=== PATIENT | male | born 1970 | race Caucasian/White ===

== ENCOUNTER → 2020-05-03 10:39 | Outpatient (CLI) | payer OTHER, SELFPAY ==
--- NOTE | ~2020-05-03 | MR_ITS ---
EXAMINATION: MR lumbar spine wo con EXAM DATE: 05/03/2020 11:34 INDICATION: Low back pain, right hip pain. TECHNIQUE: Multi-sequential, multiplanar MR images of the lumbar spine were obtained without contrast . Sagittal T1, T2, T2 fat saturation images. Axial T2 weighted images. Comparison is made to prior examination from 01/21/2019. FINDINGS: The vertebral bodies are aligned in the AP dimension. There is mild to moderate disc diseas e at T11-12, and L3-L5. Vertebral body heights are maintained. The conus medullaris terminates at the L1/2 level and has normal signal intensity and morphology. There are no suspicious marrow signal ab normalities. Paraspinal soft tissue is unremarkable. Level by level evaluation: T12-L1: Disc does not extend beyond the endplate margin. Facet arthropathy: None. Neural foraminal stenosis: No stenosis. Central canal stenosis: No stenosis. L1-L2: Disc does not extend beyond the endplate margin. Facet arthropathy: Minimal. Neural foraminal stenosis: No stenosis. Central canal stenosis: No stenosis. L2-L3: Disc does not extend beyond the endplate margin. Facet arthropathy: Mild. Neural foraminal stenosis: No stenosis. Central canal stenosis: No stenosis. L3-L4: There is a mild diffuse disc bulge. Facet arthropathy: Mild. Neural foraminal stenosis: Mild bilateral. Central canal stenosis: No stenosis. L4-L5: There is a mild diffuse disc bulge. Facet arthropathy: Mild to moderate. Neural foraminal stenosis: Mild to moderate bilateral. Central canal stenosis: No stenosis. L5-S1: There is a mild diffuse disc bulge. Facet arthropathy: Mild. Neural foraminal stenosis: Mild bilateral. Central canal stenosis: No stenosis. Compared to 2019, mild interval progression in the mid lumbar disc disease. IMPRESSION: 1. Mild to moderate lumbar spondylosis. Reviewed, dictated and finalized at location A.
== END ==
PROVIDERS: PCP Family Medicine Adolescent Medicine; Visit Provider Nurse Practitioner Family
DX: M47.26 Other spondylosis with radiculopathy, lumbar region (principal)
CPT/HCPCS: 72148

== ENCOUNTER → 2022-06-05 07:01 | Outpatient (CLI) | payer OTHER, SELFPAY ==
--- NOTE | ~2022-06-05 | MR_ITS ---
MRI of the lumbar spine Clinical History: Back pain Technique: Axial T2-weighted images, and sagittal T1-weighted, T2-weighted, and T2 fat-sat images wer e acquired. COMPARISON: 05/03/2020 Findings: There is no fracture or subluxation of the lumbar spine. Osseous alignment is unchanged. No suspicious bone marrow signal abnormality seen. At L1-L2, there is no disc bulge or herniation. There is minimal facet joint hypertrophy. No spinal c anal stenosis or neural foraminal narrowing. At L2-L3, there is minimal facet joint hypertrophy. No disc bulge or herniation. No spinal canal sten osis or neural foraminal narrowing. L3-L4, there is mild degenerative disc narrowing without significant bulge or herniation. There is mi nimal facet hypertrophy. No spinal canal stenosis or neural foraminal narrowing. At L4-L5, there is mild degenerative disc narrowing with probable minimal disc bulge. There is advanc ed facet arthropathy. No spinal canal stenosis. There is mild to moderate bilateral neural foraminal narrowing. At L5-S1, there is no disc bulge or herniation. There is moderate facet arthropathy. No spinal canal stenosis or neural foraminal narrowing. Paravertebral soft tissues are unremarkable. Impression: Mild degenerative spondylosis overall, as detailed above, worst at L4-L5. Reviewed, dictated and finalized at [facility]. Impression: Mild degenerative spondylosis overall, as detailed above, worst at L4-L5.
== END ==
PROVIDERS: PCP Family Medicine Adolescent Medicine
DX: M47.896 Other spondylosis, lumbar region (principal)
CPT/HCPCS: 72148

== ENCOUNTER 2023-03-02 13:03 | Outpatient (CLI) | payer BC, SELFPAY ==
--- NOTE | 2023-03-02 14:30 | NEURO_ITS ---
Impression: # Non-diabetic complains of numbness of right hand. # Right ulnar neuropathy around the elbow. # No Carpal Tunnel Syndrome. # Needle/EMG exam mildly neurogenic in right 1st DI and ADM. Nerve Conduction Studies Anti Sensory Summary Table Stim Site NR Peak (ms) P-T Amp (?V) Site1 Site2 Delta-P (ms) Dist (cm) Chuy (m/s) Left Median Anti Sensory (2-3nd Digit) Wrist 3.4 16.6 Wrist 2-3nd Digit 3.4 14.0 41 Wrist 3.4 66.3 Wrist 2-3nd Digit 3.4 14.0 41 Right Median Anti Sensory (2-3nd Digit) Wrist 3.7 43.4 Wrist 2-3nd Digit 3.7 14.0 38 Wrist 3.4 40.6 Wrist 2-3nd Digit 3.7 14.0 38 Left Radial Anti Sensory (Base 1st Digit) Wrist 2.3 20.1 Wrist Base 1st Digit 2.3 0.0 Right Radial Anti Sensory (Base 1st Digit) Wrist 3.1 65.4 Wrist Base 1st Digit 3.1 0.0 Left Ulnar Anti Sensory (5th Digit) Wrist 3.3 49.6 Wrist 5th Digit 3.3 14.0 42 Right Ulnar Anti Sensory (5th Digit) Wrist 3.3 37.5 Wrist 5th Digit 3.3 14.0 42 Motor Summary Table Stim Site NR Onset (ms) O-P Amp (mV) Site1 Site2 Delta-0 (ms) Dist (cm) Chuy (m/s) Left Median Motor (Abd Poll Brev) Wrist 3.8 10.6 Elbow Wrist 1.2 33.0 275 Elbow 5.0 10.4 Right Median Motor (Abd Poll Brev) Wrist 3.5 7.8 Elbow Wrist 5.8 30.0 52 Elbow 9.3 6.1 Left Ulnar Motor (Abd Dig Minimi) Wrist 3.2 8.3 A Elbow Wrist 5.9 32.0 54 A Elbow 9.1 6.9 Right Ulnar Motor (Abd Dig Minimi) Wrist 4.5 9.1 A Elbow Wrist 7.1 31.0 44 A Elbow 11.6 7.4 B Elbow Wrist 5.3 22.0 42 B Elbow 9.8 7.1 F Wave Studies NR F-Lat (ms) L-R F-Lat (ms) Left Median (Mrkrs) (Abd Poll Brev) 30.72 0.09 Right Median (Mrkrs) (Abd Poll Brev) 30.82 0.09 Left Ulnar (Mrkrs) (Abd Dig Min) 31.64 0.00 Right Ulnar (Mrkrs) (Abd Dig Min) 31.64 0.00 EMG Side Muscle Nerve Root Ins Act Fibs Amp Dur Recrt Comment Right 1stDorInt Ulnar C8-T1 Nml Nml Nml >12ms Reduced Right Ext Indicis Radial (Post Int) C7-8 Nml Nml Nml Nml Nml Right Ext Digitorum Radial (Post Int) C7-8 Nml Nml Nml Nml Nml Right BrachioRad Radial C5-6 Nml Nml Nml Nml Nml Right PronatorTeres Median C6-7 Nml Nml Nml Nml Nml Right Abd Poll Brev Median C8-T1 Nml Nml Nml Nml Nml Left 1stDorInt Ulnar C8-T1 Nml Nml Nml Nml Nml Left Ext Indicis Radial (Post Int) C7-8 Nml Nml Nml Nml Nml Left Ext Digitorum Radial (Post Int) C7-8 Nml Nml Nml Nml Nml Left BrachioRad Radial C5-6 Nml Nml Nml Nml Nml Left PronatorTeres Median C6-7 Nml Nml Nml Nml Nml Left Abd Poll Brev Median C8-T1 Nml Nml Nml Nml Nml Right ABD Dig Min Ulnar C8-T1 Nml Nml Nml >12ms Reduced Left ABD Dig Min Ulnar C8-T1 Nml Nml Nml Nml Nml MTDD
== END 2023-03-02 13:04 | disposition home or self-care (01) ==
LOC: ANHNEURO 13:04
PROVIDERS: PCP Family Medicine Adolescent Medicine; Visit Provider Nurse Practitioner Family
DX: G56.21 Lesion of ulnar nerve, right upper limb (principal)
CPT/HCPCS: 95886; 95911

== ENCOUNTER 2024-04-22 07:29 | Outpatient (CLI) | payer BC, SELFPAY ==
--- NOTE | ~2024-04-22 | MR_ITS ---
MRI of the cervical spine Clinical History: Right cervical radiculopathy Technique: Axial T2-weighted and gradient images, and sagittal T1-weighted, T2-weighted, and STIR britt ges were acquired. Findings: There is no fracture of cervical spine. There is 3 mm retrolisthesis of C5 over C6. No susp icious bone marrow signal abnormality seen. At C2-C3, there is no disc bulge or herniation. No spinal canal stenosis, cord compression, or neural foraminal narrowing. At C3-C4, there is no disc bulge or herniation. No spinal canal stenosis, cord compression, or neural foraminal narrowing. At C4-C5, there is no disc bulge or herniation. No spinal canal stenosis, cord compression, or neural foraminal narrowing. There is minimal facet hypertrophy. C5-C6, there is moderate degenerative distended. There is disc osteophyte complex with mild canal janki nosis and no matthew cord compression. There is bilateral neural foraminal narrowing. At C6-C7, there is moderate degenerative distended. There is disc osteophyte complex without canal st enosis or cord compression. There is severe bilateral neural foraminal narrowing. Impression: Moderate degenerative spondylosis especially at C5-C6 and C6-C7, as detailed above. 3 mm retrolisthesis of C5 over C6. Reviewed, dictated and finalized at [facility]. Impression: Moderate degenerative spondylosis especially at C5-C6 and C6-C7, as detailed ab ove. 3 mm retrolisthesis of C5 over C6.
== END 2024-04-22 07:30 | disposition home or self-care (01) ==
PROVIDERS: PCP Family Medicine Adolescent Medicine; Visit Provider Family Medicine Adolescent Medicine
DX: M47.812 Spondylosis without myelopathy or radiculopathy, cervical region (principal); M43.12 Spondylolisthesis, cervical region; R29.898 Other symptoms and signs involving the musculoskeletal system
CPT/HCPCS: 72141

== ENCOUNTER 2024-08-15 08:01 | Outpatient (CLI) | payer BC, SELFPAY ==
--- NOTE | ~2024-08-15 | XR_ITS ---
CHEST RADIOGRAPH, PA AND LATERAL CLINICAL HISTORY: G56.21 - Lesion of ulnar nerve, right upper limb . COMPARISON: None available TECHNIQUE: PA and lateral views of the chest. FINDINGS The cardiomediastinal silhouette is unremarkable. Fixation hardware within the right clavicle. Prior fracture deformity within the mid to lower posterior right ribs, likely the eighth and ninth ri ght ribs. No fracture deformity is identified within the left chest. Elevation of the left hemidiaphragm is identified with adjacent compressive atelectasis. The remainder of the lungs are clear. IMPRESSION: No focal infiltrate or effusion. Reviewed, dictated and finalized at location A.
--- OUTSIDE RECORDS SUMMARY | 2024-08-15 08:07 | XMS_ITS | Clinical Summary ---
Author Organization [facility] [address] [place] [address] [address] [place] [address] Care Team Providers Care Director Of Operations For Therapy Name Role Phone Natanael Ny MD Primary Care Provider +1- [phone] Allergies No known active allergies Medications DULoxetine (CYMBALTA) 60 mg Capsule, Delayed Release(E.C.) Take 60 mg by mouth daily. Active lisinopriL (PRINIVIL) 20 mg tablet Take 20 mg by mouth daily. Active pregabalin (LYRICA) 150 mg Capsule Take 150 mg by mouth. Active pantoprazole (PROTONIX) 40 mg Tablet, Delayed Release (E.C.) Take 40 mg by mouth daily. 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 Gender Identity Not on file Sexual Orientation Not on file Last Filed Vital Signs Vital Sign Reading Time Taken Comments Blood Pressure - - Pulse - - Temperature - - Respiratory Rate - - Oxygen Saturation - - Inhaled Oxygen Concentration - - Weight 65.8 kg (145 lb) 06/04/2020 10:23 AM CDT Height 175.3 cm (5' 9) 06/04/2020 10:23 AM CDT Body Mass Index 21.41 06/04/2020 10:23 AM CDT Plan of Treatment Health Maintenance Due Date Last Done Comments DTAP/TDAP/TD VACCINES (1 - Tdap) 1988 HEPATITIS B VACCINES (1 of 3 - 19+ 3-dose series) 06/1988 COLORECTAL SCREENING 2014 Colorectal Cancer Screening 2014 FIT-DNA Q 3 years 2014 FIT/FOBT Q 1 year 2014 Flex Sig/CT Colonography Q 5 years 2014 ZOSTER VACCINE (1 of 2) 10/14/2019 INFLUENZA VACCINE (#1) 2024 Care Teams Director Of Operations For Therapy Relationship Specialty Start Date End Date Natanael Ny MD PCP - General Family Practice 04/04/20
--- OUTSIDE RECORDS SUMMARY | 2024-08-15 08:07 | XMS_ITS | Clinical Summary ---
Author Organization [facility] Address [address] [place] [address] Care Team Providers Care Sole Sewer Hand Name Role Phone Unavailable Primary Care Provider Unavailabl e Source Comments [facility] [employer],non-owned Affiliates and Associated Physician Practices is amultiple site organization consisting of ambulatory clinics and hospital sitesin [place], [place], [place] and [place]. This disclosure is being madepursuant to the Care Everywhere program and may not contain all information available regarding this patient. Last updated 17.[facility] [employer] Allergies No known active allergies Medications * This document contains information received from the source organization and may not represent a complete record from that organization. * Be aware that medications may not be up to date on this document. Alwaysverify current medications with the patient. naproxen sodium (ANAPROX DS) 550 MG tabletIndicatio ns:Pain Take 1 tablet by mouth 2 times daily Reasons: Pain 60 tablet 0 Active hydrOXYzine hcl (ATARAX) 50 MG tabletIndicatio ns:Anxiety Take 1 tablet by mouth every 6 hours as needed Reasons: Feeling Anxious 30 tablet 0 Active sertraline (ZOLOFT) 50 MG tabletIndicatio ns:Major Depressive Disorder Take 1 tablet by mouth once daily Reasons: Major Depressive Disorder 30 tablet 0 Active naltrexone (REVIA) 50 MG tabletIndicatio ns:Alcoholism Take 1 tablet by mouth once daily Reasons: Excessive Use of Alcohol 30 tablet 0 Active cyanocobalamin 1000 MCGIndications: Vitamin B12 Deficiency Take 1 tablet by mouth once daily Reasons: Inadequate Vitamin B12 30 tablet 0 Active pantoprazole EC (PROTONIX) 40 MG tabletIndicatio ns:Heartburn Take 1 tablet by mouth once daily Reasons: Heartburn 30 tablet 0 Active Vitamin D3, cholecalciferol , (CHOLECALCIFERO L) 25 MCG (1000 UNITS) tabletIndicatio ns:Vitamin D Deficiency Take 2 tablets by mouth once daily Reasons: Vitamin D Deficiency 60 tablet 0 Active nicotine (NICODERM CQ) 21 MG/24HR patchIndication s:Nicotine Dependence Apply 1 patch to skin once daily Remove old patch before applying new patch. Reasons: Nicotine Addiction 30 patch 0 Active gabapentin (NEURONTIN) 300 MG capsuleIndicati ons:Neuropathic Pain Take 1 capsule by mouth 2 times daily Reasons: Neuropathic Pain 60 capsule 0 Active lisinopril (PRINIVIL; ZESTRIL) 20 MG tabletIndicatio ns:Hypertension Take 1 tablet by mouth once daily Reasons: High Blood Pressure Disorder 30 tablet 0 Active traZODone (DESYREL) 50 MG tabletIndicatio ns:Alcoholism,I nsomnia Take 1 tablet by mouth at bedtime Reasons: Excessive Use of Alcohol, Trouble Sleeping 30 tablet 0 Active Active Problems Problem Noted Date Diagnosed Date Major depressive disorder, single episode, moder ate 02/24/2019 B12 deficiency 02/24/2019 Vitamin D deficiency 02/24/2019 Alcohol use disorder, severe, dependence 020 Social History Tobacco Use Types Packs/Day Years Used Date Smoking Tobacco: Heavy Smoker Smokeless Tobacco: Never Tobacco Cessation:Ready to Q uit: No; Counseling Given: Yes Alcohol Use Standard Drinks/Week Comments Yes 6 (1 standard drink = 0.6 oz pur e alcohol) 7 pints or more AUDIT-C Answer Date Recorded Frequency of Alcohol Consumption 4 or more times a week 02/23/2019 Average Number of Drinks 7 to 9 020 Frequency of Binge Drinking Daily or almost angelique y 02/23/2019 Sex and Gender Information Value Date Recorded Sex Assigned at Not on file Legal Sex Male 1:15 PM JAVA SWING DEVELOPER Gender Identity Not on file Sexual Orientation Not on file Last Filed Vital Signs Vital Sign Reading Time Taken Comments Blood Pressure 145/75 03/13/2019 2:10 PM JAVA SWING DEVELOPER Pulse 70 03/13/2019 2:10 PM JAVA SWING DEVELOPER Temperature 36.7 C (98.1 F) 03/13/2019 2:10 PM JAVA SWING DEVELOPER Respiratory Rate 16 03/13/2019 2:10 PM JAVA SWING DEVELOPER Oxygen Saturation 100% 03/13/2019 2:10 PM JAVA SWING DEVELOPER Inhaled Oxygen Concentration - - Weight 69.4 kg (153 lb) 03/02/2019 7:38 PM JAVA SWING DEVELOPER Height 175.3 cm (5' 9) 03/02/2019 7:38 PM JAVA SWING DEVELOPER Body Mass Index 22.59 03/02/2019 7:38 PM JAVA SWING DEVELOPER Plan of Treatment Health Maintenance Due Date Last Done Comments COLOGUARD (AGES 45-75) - COL ON CA SCREENING 1969 COLON MONITORING 1969 COLONOSCOPY - COLON CA SCREENING 1969 CT COLONOGRAPHY - COLON CA SCREENING 1969 Colorectal Cancer Screening 1969 FIT - COLON CA SCREENING 1969 FLEX SIG - COLON CA SCREENING 1969 HIV SCREENING 1984 HEPATITIS C SCREENING 10/09/1987 DTAP/TDAP/TD VACCINES (1 - Tdap) 1988 HEPATITIS B VACCINE (1 of 3 - 19+ 3-dose series) 1988 PNEUMOCOCCAL VACCINE 50+ (1 of 2 - PCV) 1988 ZOSTER VACCINE (1 of 2) 10/14/2019 COVID-19 VACCINE (1 - 2023-2 5 season) 2023 DEPRESSION SCREENING 02/09/2024 LIPID TESTING 02/25/2024 02/24/2019 INFLUENZA VACCINE (#1) 2024 HIB VACCINE Aged Out No longer eligi ble based on patient's age to complete this topic HPV VACCINE Aged Out No longer eligi ble based on patient's age to complete this topic MENINGOCOCCAL (Group B) VACC INE SHARED DECISION-MAKING Aged Out No longer eligibl e based on patient's age to complete this topic MENINGOCOCCAL GROUPS A/C/Y/W VACCINE Aged Out No longer eligible b ased on patient's age to complete this topic Procedures Procedure Name Priority Date/Time Associated Diagnosis Comments LIPID PROFILE AM Draw 02/24/2019 7:06 AM JAVA SWING DEVELOPER from Last 3 Months or Most Recently Relevant to Health Maintenance Results * LIPID PROFILE (02/24/2019 7:06 AM JAVA SWING DEVELOPER) Cholesterol 190 <200 mg/dL 02/24/2019 7:35 AM [facility] Triglycerides 47 <150 mg/dL 02/24/2019 7:35 AM [facility] HDL Cholesterol 98 >40 mg/dL 0 7:35 AM JAVA SWING DEVELOPER [facility] LDL Calculated 83 <130 mg/dL 02/24/2019 7:35 AM [facility] VLDL Calculated 9 <=30 mg/dL 0 7:35 AM [facility] Chol HDL Ratio 1.9 <4.5 02/24/2019 7:35 AM [facility] LDL/HDL Ratio 0.8 <5.0 02/24/2019 7:35 AM [facility] Blood BLOOD SPECIMEN / Unknown Lab Venipuncture / Unknown 02/24/2019 7:06 AM JAVA SWING DEVELOPER 02/24/2019 7:12 AM [facility] Emmett Wilson MD LAB - CHEMISTRY ORDERABLES Fin al Result [facility] [address] [id number] from Last 3 Months or Most Recently Relevant to Health Maintenance Insurance ANTHEM Advance Directives * Full Code (Latest Code Status on File) Date Activated Date Inactivated Comments 02/23/2019 5:16 PM 03/13/2019 8:47 PM
--- NOTE | 2024-08-15 08:54 | ECG_ITS ---
Test Date: 2024-08-15 09:06:33 Measurements Intervals [place] Rate: 59 P: 50 ME: 152 QRS: 46 QRSD: 97 T: 49 QT: 404 QTc: 402 Interpretive Statements SINUS BRADYCARDIA NORMAL ELECTROCARDIOGRAM No previous ECG available for comparison Electronically Signed On 08-16-2024 07:28:40 CDT by Gallito Dave M.D.
[2024-08-15 09:15] LABS: Hematocrit 40.7 % (42.0-52.0); Hemoglobin 13.0 g/dL (14.0-18.0); Mean Corpuscular HGB Conc 31.9 g/dl (32-36); Mean Corpuscular Hemoglobin 29.6 pg (26-34); Mean Corpuscular Volume 92.7 fl (80-100); Platelet Count Result 269 k/mm3 (150-375); Red Blood Count 4.39 M/mm3 (4.6-6.20); White Blood Count 8.1 K/mm3 (4.5-10.0)
[2024-08-15 09:33] LABS: Anion Gap 9 mmol/L (4-12); Blood Urea Nitrogen 7 mg/dL (9-20); Calcium 9.9 mg/dL (8.4-10.2); Carbon Dioxide 29 mmol/L (22-30); Chloride 105 mmol/L (98-107); Estimated Glomerular Filt Rate > 60; Glucose 97 mg/dL (65-110); Potassium 4.5 mmol/L (3.4-5.0); Sodium 143 mmol/L (137-145)
[2024-08-15 09:39] LABS: INR 1.0; Prothrombin Time 12.7 Seconds (11.1-14.7)
[2024-08-15 09:40] LABS: Add Urine Microscopic? NO; Appearance Urine Clear (Clear); Glucose Urine UA Negative (Negative); Leukocyte Esterase Ur Negative LEU/UL (Negative); Nitrate Urine Negative (Negative); Specific Grav Ur 1.009 (1.001-1.035)
[2024-08-15 09:40] LABS: Partial Thromboplastin Time 29.7 Seconds (22.3-36.8)
== END 2024-08-15 08:02 | disposition home or self-care (01) ==
PROVIDERS: PCP Family Medicine Adolescent Medicine; Visit Provider Neurological Surgery
DX: G56.21 Lesion of ulnar nerve, right upper limb (principal); Z01.818 Encounter for other preprocedural examination
CPT/HCPCS: 36415; 71046; 80048; 81003; 85027; 85610; 85730; 93005

== ENCOUNTER 2024-08-23 01:45 | Day surgery (SDC) | payer BC, SELFPAY ==
[2024-08-15 08:16] VITALS: BP 150/84; PULSE 61; RESP 16; TEMP 36.7; O2SAT 99; BMI 22.8
--- NOTE | 2024-08-15 08:34 | PC.NURSE ---
Report to the Outpatient Waiting Room, entrance under the green pavilion located off [facility], at time __6:00AM on date __08/23/24 . Planned Procedure Time: __7:30AM .? Time changes happen often and if your time is changed the preop area will call you the afternoon before. - You and your visitor will be asked to self-screen and do not enter if you have any COVID symptoms. Please call surgeon if you need to reschedule. - A mask is optional within the hospital at this time. Patients may have clear liquids (water, carbonated beverages, clear teas, apple juice) until 3 hours prior to surgery with a maximum of 20 ounces. - No food from midnight until time of surgery and no smoking, or chewing tobacco (or any form of nicotine). No chewing gum, candy or mints. Take only the following medications with a SIP of water on the morning of surgery: PREGABALIN NEEDED FOR PAIN DO NOT STOP ANY OF YOUR OTHER PRESCRIPTION MEDICATIONS PRIOR TO SURGERY EXCEPT THE FOLLOWING Hold all vitamins and supplements for 3 days per anesthesiologist. Medications to discontinue per physician ___NONE Date to take last dose Please no make-up, nail tongan, hairspray, perfume, deodorant, or body powder the day of surgery.? No jewelry (including any body piercings) or valuables the day of surgery, leave them at home.? Please take a shower or bath the night before, or the morning of, surgery with an antibacterial soap.? Wear comfortable, loose fitting clothing.? - Jewelry must be removed prior to entering the operating room.? Rings and piercings that are not removed may be cut off. - The hospital will not accept responsibility for valuables.? - Please leave all valuables, including medications, at home the day of surgery. If you are going home after surgery, a licensed patient transportation driver must drive you home.? - NO public transportation without another adult if you receive anesthesia. - We recommend that an adult stay with you for 24 hours following discharge. - We also recommend that you do not drive, make important decision, drink alcoholic beverages, or take any drugs that were not prescribed by your health care provider for at least 24 hours after your discharge time. Follow any additional instructions given to you from your surgeon. Telephone instructions given to ____PATIENT and asked if any additional questions and then verbalized understanding. Patient advised to call surgeon office or pre surgery nurse liaison [phone] if any additional questions.
--- OUTSIDE RECORDS SUMMARY | 2024-08-23 01:48 | XMS_ITS | Clinical Summary ---
Author Organization [facility] Address [address] [place] [address] Care Team Providers Care Astronomy Instructor Name Role Phone Unavailable Primary Care Provider Unavailabl e Source Comments [facility] [employer],non-owned Affiliates and Associated Physician Practices is amultiple site organization consisting of ambulatory clinics and hospital sitesin [place], [place], [place] and [place]. This disclosure is being madepursuant to the Care Everywhere program and may not contain all information available regarding this patient. Last updated 17.[facility] [employer] Allergies No known active allergies Medications * [...] on file Legal Sex Male 1:15 PM BAIT PACKER Gender Identity Not on file Sexual Orientation Not on file Last Filed Vital Signs Vital Sign Reading Time Taken Comments Blood Pressure 145/75 03/13/2019 2:10 PM BAIT PACKER Pulse 70 03/13/2019 2:10 PM BAIT PACKER Temperature 36.7 C (98.1 F) 03/13/2019 2:10 PM BAIT PACKER Respiratory Rate 16 03/13/2019 2:10 PM BAIT PACKER Oxygen Saturation 100% 03/13/2019 2:10 PM BAIT PACKER Inhaled Oxygen Concentration - - Weight 69.4 kg (153 lb) 03/02/2019 7:38 PM BAIT PACKER Height 175.3 cm (5' 9) 03/02/2019 7:38 PM BAIT PACKER Body Mass Index 22.59 03/02/2019 7:38 PM BAIT PACKER Plan of Treatment Health Maintenance Due Date [...] LIPID PROFILE AM Draw 02/24/2019 7:06 AM BAIT PACKER from Last 3 Months or Most Recently Relevant to Health Maintenance Results * LIPID PROFILE (02/24/2019 7:06 AM BAIT PACKER) Cholesterol 190 <200 mg/dL 02/24/2019 7:35 AM [facility] Triglycerides 47 <150 mg/dL 02/24/2019 7:35 AM [facility] HDL Cholesterol 98 >40 mg/dL 0 7:35 AM BAIT PACKER [facility] LDL Calculated 83 <130 mg/dL 02/24/2019 7:35 AM [facility] VLDL Calculated 9 <=30 mg/dL 0 7:35 AM [facility] Chol HDL Ratio 1.9 <4.5 02/24/2019 7:35 AM [facility] LDL/HDL Ratio 0.8 <5.0 02/24/2019 7:35 AM [facility] Blood BLOOD SPECIMEN / Unknown Lab Venipuncture / Unknown 02/24/2019 7:06 AM BAIT PACKER 02/24/2019 7:12 AM [facility] Emmett Wilson MD LAB - CHEMISTRY ORDERABLES Fin al Result [facility] [address] [phone] from Last 3 Months or Most Recently Relevant to Health Maintenance Insurance [employer] Advance Directives * Full Code (Latest Code Status on File) Date Activated Date Inactivated Comments 02/23/2019 5:16 PM 03/13/2019 8:47 PM
--- OUTSIDE RECORDS SUMMARY | 2024-08-23 01:48 | XMS_ITS | Clinical Summary ---
Author Organization [employer] [address] [place] [address] [address] [place] [address] Care Team Providers Care Practice Office Associate Name Role Phone Natanael Ny MD Primary Care Provider +1- [phone] Allergies No known active allergies Medications DULoxetine [...] on file Legal Sex Male 1:59 PM PSYCHIATRIC CNS Gender Identity Not on file Sexual Orientation [...] 10/14/2019 INFLUENZA VACCINE (#1) 2024 Care Teams Practice Office Associate Relationship Specialty Start Date End Date Natanael Ny MD PCP - General Family Practice 04/04/20
[2024-08-23 06:07] VITALS: BP 130/72; PULSE 81; RESP 16; TEMP 36.5; O2SAT 98
[2024-08-23] MEDS: LACTATED RINGERS 1,000 ML 30 ML IV CONT (06:25)
--- NOTE | 2024-08-23 07:18 | P.PNAN_ITS ---
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 Patient Data Age: 53 Gender: M Height: 1.75 m Weight: 68.7 kg Last Vital Signs Temp 97.7 F 08/23/24 06:07 Pulse 81 08/23/24 06:07 Resp 16 08/23/24 06:07 BP 130/72 08/23/24 06:07 Pulse Ox 98 08/23/24 06:07 O2 Del Method Room Air 08/23/24 06:07 Allergies Allergy/AdvReac Type Severity Reaction Status Date / Time duloxetine AdvReac Intermediate Headache Verified 08/23/24 06:42 sertraline AdvReac Intermediate Headache Verified 08/23/24 06:42 Home Medications ?Medication ?Instructions ?Recorded ?Confirmed ?Type tamsulosin 0.4 mg capsule 0.4 mg PO DAILY #90 caps 12/28/23 08/23/24 Rx lisinopril 20 mg tablet See Rx Instructions .Route 03/16/24 08/23/24 Rx .COMPLEX #90 tabs pregabalin 150 mg capsule 150 mg PO BID #60 caps 03/20/24 08/23/24 Rx vortioxetine 20 mg tablet 20 mg PO DAILY #30 tabs 04/13/24 08/23/24 Rx (Trintellix) bupropion HCl 300 mg 24 hr tablet, 300 mg PO QPM 08/15/24 08/23/24 History extended release pantoprazole 40 mg tablet,delayed 40 mg PO QPM 08/15/24 08/23/24 History release Patient hx anesthesia problems: none Family hx anesthesia problems: none Results Review: All pre-operative results and documents have been reviewed as part of the pre- operative evaluation. [facility] Past Medical History Medical History History of fracture of clavicle with ORIF 2011 Fracture of middle phalanx of little finger Healthy adult male Surgical History Surgical History History of appendectomy 1982 Family History Family History Grandparent Colon cancer Heart failure Alzheimer disease Breast cancer Heart disease Father Asthma Other Depression Hypertension Social History Social History Smoking packs per day: 1 Smoking cigarettes per day: 20.0 Years smoked: 35 Smoking pack-years: 35.00 Smoking status: Current every day smoker Tobacco type: cigarettes Second hand tobacco smoke exposure: No Smoking end date: 08/02/24 Additional smoking assessment comments: CURRENTLY SMOKING 1/2 PACK/DAY, TRYING TO DECREASE Alcohol intake: former Alcohol use details: RECOVERING ALCOHOLIC, QUIT 2020 Substance use: never Substance use type: does not use Last use: 2000 Do You Feel Safe in your Home?: Yes Lack of Transportation: No Lack of Food: Never True Current Housing: I Have Housing Concerned About Future Housing: No Difficulty Paying Gas/Electric Bills: No Difficulty Paying for Meds: No Currently Unemployed: YES Education: Master's Degree or Higher Difficulty w/ Childcare or Family Care: No Living arrangements: with roommate(s) Additional living arrangements comments: ROOM MATE Occupation/Education: occupation Gender identity (if verbalized by the patient): Male Sexual Orientation (if Verbalized by the Patient): Straight or Heterosexual Spiritual care concerns: No Agree to blood products: Yes Anes - Eval Final PreProcedure Day of Procedure 08/23/24 07:18 Patient weight: normal Heart: regular rate and rhythm Lungs: clear to auscultation Airway: Mallampati scale class II Neurological: alert and oriented Last oral intake: >/= 8 hours ASA classification: III Emergent: no Anesthetic plan: proceed Anesthesia type and monitoring: general GIVS and standard monitoring Results Review: All pre-operative results and documents have been reviewed as part of the pre- operative evaluation. Informed Consent: The patient's anesthetic plan and its attendant risks and benefits were discussed with the patient/family/POA. Questions were solicited and answers provided to the satisfaction of the patient/family/POA.
--- NOTE | 2024-08-23 07:18 | WPDHPUPDATE1 ---
History and Physical Update Update Date/Time: 08/23/24 07:18 History and Physical has been reviewed, including an updated exam of the patient. There are NO changes in the patient's condition. Risks, benefits, and alternatives have been discussed and questions answered. Patient agrees to proceed with procedure.
[2024-08-23] MEDS: ceFAZolin 2 GM in SODIUM CHLORIDE 0.9% IV 50 ML 100 ML IVPB (07:28)
[2024-08-23] MEDS: BUPIVACAINE/EPINEPHRINE 0.5% 50 ML VIAL 10 ML INFILTRATE (08:02)
[2024-08-23 09:15] VITALS: BP 122/65; PULSE 54; RESP 16; O2SAT 100
--- NOTE | 2024-08-23 09:22 | W.PM.PROC2 ---
Procedure Note - Detailed Date of Procedure 08/23/24 Pre-op Diagnosis Ulnar Neuropathy Rt Arm Post-op Diagnosis Same Procedure Performed Right ulnar nerve decompression at the elbow with submuscular transposition Surgeon Rebecca Ferreira MD Canal Structure Operator [facility] Anesthesia [facility] Description of Procedure The patient was brought to the operating room where anesthesia via IV sedation was induced. The patient remained supine on the bed with the right arm extended onto an arm board. A curvilinear incision was planned between the medial epicondyle and the olecranon, extending 4cm distal and 4cm proximal to the medial epicondyle. The arm was prepped and draped in usual sterile fashion. Time out was performed. The incision was injected with local anesthetic. A 15-blade scalpel was used to open the incision. The bipolar was used to obtain hemostasis. A Metzenbaum scissors was used for alternating blunt and sharp dissection until the aponeurosis of the cubital tunnel was identified. The ulnar nerve was palpated in the cubital tunnel. The aponeurosis was opened sharply away from the ulnar nerve and fully opened both proximally and distally, extending through the fascia of the flexor carpi ulnaris. The course of the ulnar nerve was followed through the flexor carpi ulnaris to verify it was fully decompressed. The soft tissue above the flexor pronator origin was sharply and bluntly dissected to expose the medial intermuscular septum. This was excised sharply. Next, two fascial flaps were planned on the fascia of the flexor pronator muscle. These were sharply cut, with the distal flap reflected toward the nerve and the proximal flap reflected away from the nerve. This exposed the fascial septum which was then sharply removed as well. Pronator teres muscle was then released proximally to create a place for the ulnar nerve to sit once transposed. The ulnar nerve was mobilized and transposed, and the fascial flaps were loosely sutured together with a 2-0 silk. The proximal and distal ends of the ulnar nerve were verified to be decompressed, and the elbow was mobilized to ensure the nerve did not develop any new areas of compression with transposition. The surgical site was copiously irrigated. Hemostasis was verified with the bipolar. The dermis was closed with 3-0 vicryl, and the skin was closed with 4-0 monocryl. Steristrips were placed across the incision. This was covered with gauze, kerlix, and MOHAN wrap. The arm was placed into a sling. The patient was returned to anesthesia and awakened. The patient was transferred to PACU without incident. Billing code: [id number] Estimated Blood Loss 25 Drains No Packing No Pathology None sent Complications No immediate complications Condition Stable Disposition PACU [facility] Billing Surgery - Charge Forward: Surgery Billing
[2024-08-23 09:45] VITALS: BP 143/65; PULSE 60; RESP 20
[2024-08-23] MEDS: oxyCODONE HCL (*CRX) 5 MG TAB IR PO (09:56)
[2024-08-23 10:15] VITALS: BP 133/66; PULSE 57; RESP 20
== END 2024-08-23 10:39 | disposition home or self-care (01) ==
PROVIDERS: PCP Family Medicine Adolescent Medicine; Visit Provider Neurological Surgery
PROC: (CPT 64718; principal; 2024-08-23 07:30)
DX: G56.21 Lesion of ulnar nerve, right upper limb (principal); F17.210 Nicotine dependence, cigarettes, uncomplicated; F10.21 Alcohol dependence, in remission
CPT/HCPCS: 64718; J0690; A4565; A9270; J1100; J2003; J2250; J2405; J2704; J3010; J7120